=== PATIENT | female | born 1955 | race Caucasian/White ===

== ENCOUNTER 2019-12-11 10:15 | Day surgery (SDC) | payer OTHER ==
[~2019-12-11] VITALS: Ht 160 cm; Wt 122.7 kg
--- NOTE | ~2019-12-11 | OP ---
PATIENT NAME: ACOSTA THORPE MEDICAL RECORD: [id number] :55 LOCATION:[facility] ADMISSION DATE: SURGEON: ANASTASIA BARRIENTOS DO DATE OF OPERATION: 12/11/2019 PROCEDURE: EGD with biopsies. INDICATIONS FOR PROCEDURE: Anemia and heartburn. SCOPE: Olympus video gastroscope. MEDICATIONS: Propofol 160 mg IV per anesthesia. ESTIMATED BLOOD LOSS: Minimal. COMPLICATIONS: None. FINDINGS: Informed consent was given. The patient was made comfortable with the above medication. After reaching an adequate level of sedation by slow IV push, the patient was placed on her left side. The endoscope was advanced under direct visualization through the mouth to the second portion of the duodenum with ease. The entire esophagus appeared normal. At the GE junction, there was evidence of mild LA class A reflux-induced esophagitis. The endoscope was advanced beyond the GE junction into the stomach where a [id number]-tz-kupvs hiatal hernia was immediately encountered. Retroflexion was performed both in the hernia sac as well as distal to the diaphragmatic hiatus. The hernia was a mixed paraesophageal and sliding-type hiatal hernia. There were no associated ulcers or abnormalities with the hernia sac itself. The endoscope was advanced beyond the diaphragmatic opening through the body of the stomach and antrum. The entire stomach mucosa appeared normal. Random biopsies were taken from the antrum and incisura to submit for histopathology and to rule out the presence of H. pylori. The endoscope was advanced beyond the pylorus into the duodenum, which appeared normal to the second portion. The endoscope was then withdrawn from the patient. The patient tolerated the procedure well and there were no complications. IMPRESSION: 1. LA class A reflux-induced esophagitis. 2. Moderate to large hiatal hernia, mixed type. PLAN AND RECOMMENDATIONS: 1. Discharge home when recovery parameters are met. 2. Follow up biopsy specimen results. 3. GERD diet and reflux precautions. 4. Continue current medications. 5. Consider further workup of anemia as indicated. Of note, the patient is scheduled for a recall colonoscopy 5 years from her last procedure, which was May 2017; if this needs reevaluated sooner due to the anemia please contact GI services. 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
[2019-12-11 10:56] LABS: BASOPHILS 0.2 % (0-2); EOSINOPHILS 3.6 % (0-7); HEMATOCRIT 41.6 % (36.0-48.0); HEMOGLOBIN 13.3 g/dL (12-16); LYMPHOCYTES 21.3 % (15-50); MCH 32.3 pg (26.0-34.0); MEAN PLATELET VOLUME 10.3 fL (7.4-10.4); MONOCYTES 9.9 % (2-11); PLATELET COUNT 173 10x3/uL (130-400); RBC 4.12 10x6/uL (4.00-5.40); RDW 13.9 % (11.5-14.5); WBC 5.5 10x3/uL (4.8-10.8)
[2019-12-11 11:19] VITALS: BP 156/87; Ht 160 cm; Wt 122.7 kg
[2019-12-11] MEDS ORDERED: EZFE 200200 MG PO (11:19)
== END 2019-12-11 13:00 | disposition home or self-care (01) ==
LOC: D.OPS 10:15
PROVIDERS: Anesthesiology; ATTEND Internal Medicine Gastroenterology
DX: D64.9 Anemia, unspecified (principal); R12 Heartburn; K21.0 Gastro-esophageal reflux disease with esophagitis; K44.9 Diaphragmatic hernia without obstruction or gangrene